=== PATIENT | male | born 1990 | race Caucasian/White ===

== ENCOUNTER 2023-05-17 09:51 | Emergency (ER) | payer MEDICAID, SELFPAY ==
[2023-05-17] VITALS (7 sets, daily range): BP systolic 125–133; BP diastolic 88–94; PULSE 72–96; RESP 14–18; TEMP 37; O2SAT 96–99; BMI 25.5
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
--- NOTE | 2023-05-17 10:17 | ED.RN ---
THIS RN TOLD SECURITY ABOUT PT HOMICIDAL THOUGHTS AT 1010.
[2023-05-17 10:38] LABS: Absolute Lymphocyte Count 3.32 X10^3/uL (0.83-4.51); Absolute Neutrophil Count 4.3 X10^3/uL (2.0-7.7); Basophil# 0.02 X10^3/uL; Basophil% 0.2 % (0-1); Hematocrit 49.6 % (40-54); Hemoglobin 16.5 g/dL (13.0-16.5); Lymphocyte # 3.32 X10^3/ul (0.83-4.51); Lymphocyte % 39.5 % (19-41); Mean Corp Hgb Conc 33.3 g/dL (32-36); Mean Corpuscular Volume 96.3 fL (80-94); Monocyte# 0.71 X10^3/uL; Monocyte% 8.5 % (0-10); NRBC Flagged by Analyzer 0 % (0-5); Neutrophil # 4.33 X10^3/uL (2.7-7.7); Neutrophil % 51.6 % (47-70); Platelet Count 195 K/mm3 (150-450); RBC Distribution Width CV 13.9 % (11.6-14.6); RBC Distribution Width SD 49.9 fl (35.1-43.9); Red Blood Count 5.15 M/mm3 (4.6-6.2); White Blood Count 8.4 K/mm3 (4.4-11.0)
[2023-05-17 10:48] LABS: Alcohol, Blood (Medical)-Serum < 3.0 mg/dL
[2023-05-17 10:50] LABS: Anion Gap 6 (5-15); BUN 6 mg/dL (7-18); BUN/Creat Ratio 5.5 RATIO (10-20); Chloride 107 mmol/L (98-107); Creatinine, Serum 1.09 mg/dL (0.70-1.30); EST Glomerular Filtration Rate 82 mL/min (>60); Est Glom Filt Rate - Afr Amer 99 mL/min (>60); Estimated Creatinine Clearance 95.49 ml/min; Glucose 99 mg/dL (74-106); Potassium 5.3 mmol/L (3.5-5.1); Sodium Level 138 mmol/L (136-145)
[2023-05-17 11:07] LABS: Amphetamine Urine VISTA NEGATIVE (<1000 ng/mL); Barbiturate Urine VISTA NEGATIVE (< 200 ng/mL); Benzodiazepine Urine VISTA NEGATIVE (< 200 ng/mL); Cocaine Urine VISTA NEGATIVE (< 300 ng/mL); Ecstacy Urine VISTA NEGATIVE (< 500 ng/mL); Methadone Urine VISTA NEGATIVE (< 300 ng/mL); PCP Urine VISTA NEGATIVE (< 25 ng/mL); THC Urine VISTA POSITIVE (< 50 ng/mL); Vista UDS pH Range 7
--- NOTE | 2023-05-17 13:57 | ED.RN ---
Addendum entered by Nika Sylvester 05/17/23 14:11: MESSAGE LEFT WITH MANAGER FRAUD AT 0022. Original Note: THIS RN ATTEMPTED TO CALL SHAYLA ARMENDARIZ IN ORDER TO OBTAIN VERBAL CONSENT AT [id number]. NO ANSWER, STRAIGHT TO VOICEMAIL. SHIVAM HICKMAN WITNESS.
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
[2023-05-17] MEDS: busPIRone 5 MG Tablet PO (16:51)
[2023-05-17] MEDS: LORazepam 0.5 MG Tablet PO (17:10)
--- NOTE | 2023-05-17 18:29 | CM.ED ---
Addendum entered by Candace Daly 05/17/23 19:42: Pt to [facility], called and reported bed is available at [facility] location. Pt going to [facility] unit, accepted by Dr. Esquivel. Nurse to nurse already completed, will need an ETA when transport arranged and pink slip to facility. Candace GALLEGOS, SURGICAL ELASTIC KNITTER Original Note: Social Work Pt referred to [facility] and [facility]. [facility] beds today and [facility] denied due to not accepting patient's insurance. Pt referred to [facility] and [facility], pending review. Candace Daly MSW, SURGICAL ELASTIC KNITTER
--- NOTE | 2023-05-17 19:14 | ED.RN ---
THIS RN TOOK CALL FROM [facility] REGARDING PT STATUS. THIS RN UPDATED JALEESA WITH [facility] ON PT CURRENT CONDITION AT 1912.
--- NOTE | 2023-05-17 19:34 | NURSING ---
randy called, eta [phone]
== END 2023-05-17 23:33 ==
PROVIDERS: Emergency Provider Emergency Medicine; Visit Provider Emergency Medicine
DX: R45.851 Suicidal ideations (principal); F25.9 Schizoaffective disorder, unspecified; R45.850 Homicidal ideations; F17.210 Nicotine dependence, cigarettes, uncomplicated; Z11.52 Encounter for screening for COVID-19
CPT/HCPCS: 80048; 80307; 82077; 85025; 87811; 99284